=== PATIENT | female | born 1955 | race Caucasian/White ===

== ENCOUNTER 2018-09-29 10:15 | Outpatient (CLI) | payer BC ==
--- NOTE | 2018-09-29 13:45 | BD ---
BONE DENSITOMETRY USING DEXA: Date: 09/29/18 HISTORY: Postmenopausal screening for osteoporosis. FINDINGS: Lumbar Spine: BMD (g/cm2) L1 0.804 T-Score: -1.7 Z-Score: -0.1 L2 0.864 T-Score: -1.5 Z-Score: 0.3 L3 0.883 T-Score: -1.8 Z-Score: 0.1 L4 0.896 T-Score: -1.5 Z-Score: 0.4 L1-L4 0.865 T-Score: -1.7 Z-Score: 0.1 Femoral Neck: 0.545 T-Score: -2.7 Z-Score: -1.2 Total Femur: 0.747 T-Score: -1.6 Z-Score: -0.3 IMPRESSION: Osteoporosis. POS: [facility]
== END 2018-09-29 10:16 | disposition home or self-care (01) ==
LOC: BICMAMMO 10:15
PROVIDERS: ATTEND Internal Medicine Rheumatology
DX: M81.0 Age-related osteoporosis without current pathological fracture (principal)
CPT/HCPCS: 77080

== ENCOUNTER 2018-10-30 12:33 | Outpatient (CLI) | payer BC ==
--- NOTE | 2018-10-30 14:15 | RAD ---
THORACIC SPINE 3 VIEWS: Date: 10/30/18 HISTORY: Age-related osteoporosis. Back pain. FINDINGS: There are compression changes, age-indeterminate, but probably older, of a mid thoracic vertebral bod y. This is the T6 vertebral body. Degenerative osteophytes are seen along the course of the spine. No other findings. Pedicles are intact. IMPRESSION: Age-indeterminate, but probably older, mild compression changes of the T6 vertebral body. POS: [facility]
== END 2018-10-30 12:34 | disposition home or self-care (01) ==
LOC: BICRAD 12:33
PROVIDERS: ATTEND Internal Medicine Rheumatology
DX: M81.0 Age-related osteoporosis without current pathological fracture (principal)
CPT/HCPCS: 72070

== ENCOUNTER 2019-06-04 10:02 | Outpatient (CLI) | payer BC ==
--- NOTE | 2019-06-10 16:14 | MMO ---
Bilateral MAMMO Bilat Screen [facility]. CLINICAL HISTORY: Patient is 64 years old and is seen for screening. The patient has the following family history of breast cancer: mother, at age 60. The patient has no personal history of cancer. The patient has a history of right needle biopsy in 2014 - benign. VIEWS: The views performed were: bilateral craniocaudal with tomosynthesis and bilateral mediolateral oblique with tomosynthesis. FILMS COMPARED: The present examination has been compared to prior imaging studies performed at [facility] on 07/20/2015, 06/01/2016, 06/03/2018 and 06/09/2018. This study has been interpreted with the assistance of computer-aided detection. MAMMOGRAM FINDINGS: There are scattered fibroglandular densities. Finding 1: There is an asymmetry seen in the MLO view only seen in the posterior upper region of the right breast. Finding 2: There are stable benign appearing calcifications seen in both breasts. There are also vascular calcifications. IMPRESSION: FINDING 1: ASYMMETRY IN THE RIGHT BREAST REQUIRES ADDITIONAL EVALUATION. RECOMMEND DIAGNOSTIC MAMMOGRAM. ULTRASOUND MAY ALSO PROVE USEFUL AT RECALL. THE RESULTS OF THIS EXAM WERE SENT TO THE PATIENT. ACR BI-RADS Category 0 - Incomplete: Need additional imaging evaluation. [facility] will notify the patient of the need for additional imaging services. MAMMOGRAPHY NOTE: 1. A negative mammogram report should not delay a biopsy if a dominant of clinically suspicious mass is present. 2. Approximately 10% to 15% of breast cancers are not detected by mammography. 3. Adenosis and dense breasts may obscure an underlying neoplasm. Reported by: SYED MCKEON MD Electonically Signed: [id number]
== END 2019-06-04 10:03 | disposition home or self-care (01) ==
LOC: BICMAMMO 10:02
PROVIDERS: ATTEND Family Medicine
DX: Z12.31 Encounter for screening mammogram for malignant neoplasm of breast (principal); N64.89 Other specified disorders of breast; Z80.3 Family history of malignant neoplasm of breast; Z91.89 Other specified personal risk factors, not elsewhere classified
CPT/HCPCS: 77063; 77067

== ENCOUNTER 2020-06-06 08:59 | Outpatient (CLI) | payer BC ==
--- NOTE | 2020-06-06 09:51 | MMO ---
Bilateral MAMMO Bilat Screen [facility]. CLINICAL HISTORY: Patient is 65 years old and is seen for screening. The patient has the following family history of breast cancer: mother, at age 60. The patient has no personal history of cancer. The patient has a history of right needle biopsy in 2013 - benign. VIEWS: The views performed were: bilateral craniocaudal with tomosynthesis and bilateral mediolateral oblique with tomosynthesis. FILMS COMPARED: The present examination has been compared to prior imaging studies performed at [facility] on 06/01/2016, 06/03/2018 and 06/09/2018, and at [facility] on 06/04/2019. This study has been interpreted with the assistance of computer-aided detection. MAMMOGRAM FINDINGS: There are scattered fibroglandular densities. The focal symmetry in the right upper posterior breast is stable and likely due to post biopsy change. There are no suspicious masses, suspicious calcifications, or new areas of architectural distortion. IMPRESSION: THERE IS NO MAMMOGRAPHIC EVIDENCE OF MALIGNANCY. A ROUTINE FOLLOW-UP MAMMOGRAM IN 1 YEAR IS RECOMMENDED. THE RESULTS OF THIS EXAM WERE SENT TO THE PATIENT. ACR BI-RADS Category 2 - Benign finding MAMMOGRAPHY NOTE: 1. A negative mammogram report should not delay a biopsy if a dominant of clinically suspicious mass is present. 2. Approximately 10% to 15% of breast cancers are not detected by mammography. 3. Adenosis and dense breasts may obscure an underlying neoplasm. Reported by: EFRA GASPAR MD Electonically Signed: [id number]
== END 2020-06-06 09:00 | disposition home or self-care (01) ==
LOC: BICMAMMO 08:59
PROVIDERS: ATTEND Family Medicine
DX: Z12.31 Encounter for screening mammogram for malignant neoplasm of breast (principal); Z80.3 Family history of malignant neoplasm of breast; Z91.89 Other specified personal risk factors, not elsewhere classified
CPT/HCPCS: 77063; 77067